=== PATIENT | female | born 1995 | race Caucasian/White ===

== ENCOUNTER 2017-03-25 21:48 | Emergency (ER) | payer SELFPAY ==
[~2017-03-25] VITALS: Ht 157.4 cm; Wt 59.0 kg
[~2017-03-25 21:48] MED LIST: AUGMENTIN 500 M1 TAB PO; DONNATAL1 TAB PO; MACROBID100 M1 PO; PRENATAL1 TA1 PO; SPRINTEC 35 MCG1 TA1 PO; TYLENOL W/CODEI1 TA2 PO; ZOFRAN4 MG PO
[2017-03-25] MEDS ORDERED: PRENATAL1 TA3 PO (22:27)
== END 2017-03-26 00:07 | disposition home or self-care (01) ==
LOC: ED 21:48
DX: O9A.211 Injury, poisoning and certain other consequences of external causes complicating pregnancy, first trimester (principal); O99.331 Smoking (tobacco) complicating pregnancy, first trimester; S40.812A Abrasion of left upper arm, initial encounter; S40.811A Abrasion of right upper arm, initial encounter; S10.91XA Abrasion of unspecified part of neck, initial encounter; S20.312A Abrasion of left front wall of thorax, initial encounter; F17.200 Nicotine dependence, unspecified, uncomplicated; Z3A.01 Less than 8 weeks gestation of pregnancy; V86.59XA Driver of other special all-terrain or other off-road motor vehicle injured in nontraffic accident, initial encounter; Y93.89 Activity, other specified; Y92.413 State road as the place of occurrence of the external cause; Y99.8 Other external cause status

== ENCOUNTER 2017-12-28 15:29 | Inpatient (IN) | payer OTHER ==
[~2017-12-28] VITALS: Ht 157.4 cm; Wt 57.7 kg
[2017-12-28] VITALS (7 sets, daily range): BP systolic 88–110; BP diastolic 59–65
--- NOTE | ~2017-12-28 | CON ---
[place], [place] REPORT OF CONSULTATION NAME: LUDWIN LEPE UNIT #: [id number] ROOM: 402 DOCTOR: MATY LOPES,JANUARY BIRTHDATE: [birth year] DOS: 12/30/2017 HISTORY OF PRESENT ILLNESS: Ludwin is a pleasant 22-year-old female. Her symptoms began approximately 3 weeks ago. She had back pain, burning with urination, fevers or chills. She tried cranberry pills and possibly Pyridium without any improvement of her symptoms. Her admitting urinalysis had +3 leukocyte esterase, wbc's too numerous to count. Her admitting CT of her abdomen and pelvis did demonstrate pyelonephritis. She had a renal ultrasound, which did not demonstrate any hydronephrosis or obstruction. ID is consulted for pyelonephritis or admitting urine culture grew an ESBL E. coli that is very resistant to antibiotics only sensitive to carbapenem and nitrofurantoin. The patient is alert and oriented, states she is feeling somewhat better. She had a max temp yesterday up to 103.5. Her blood cultures are negative. The patient has not received any recent antibiotics for at least over the last 6 months. The only thing she has had is Tamiflu. PAST MEDICAL HISTORY: She has had one other severe urinary tract infection that was approximately 7 years ago when she was with her son. Otherwise, no other significant past medical history. FAMILY MEDICAL HISTORY: Both parents with diabetes. SOCIAL HISTORY: She has two natural children, lives with her boyfriend and their total of 5 children. No alcohol or illicit drug use, smokes half pack of cigarettes per day for several years since she was a teenager. She works at [employer]. REVIEW OF SYSTEMS: As above in history of present illness. Nausea and vomiting have improved. No diarrhea. No rash or itch. No cough or shortness of breath. No headache or dizziness. No chest pain or palpitations. Back pain is improving. Temps today are down. She was started on Merrem today. No peripheral edema or joint swelling or pain. Further review of systems unremarkable. LABORATORY DATA: WBCs were originally 19.1 down to 11.8, platelets 229, BUN 3 and creatinine 0.6. Cultures as reviewed above. CURRENT MEDICATIONS: Vitamin B complex, Merrem that was just started this morning. She had been receiving Rocephin up until that point. Zofran, Restoril and Tylenol. VITAL SIGNS: Temperature 98.4, pulse 82, respirations 16 and BP 96/63. GENERAL: A 22-year-old female in no acute distress, nontoxic in appearance. HEAD, EYES, EARS, NOSE AND THROAT: Normocephalic, no thrush. NECK: Supple. LUNGS: Clear to auscultation bilaterally. Respirations even and unlabored. HEART: Regular rhythm. No murmur appreciated. ABDOMEN: Soft, nontender, nondistended. Mild right CVA tenderness. EXTREMITIES: No edema, deformity or cyanosis. SKIN: Warm, dry and free of rashes. [place], [place] REPORT OF CONSULTATION NAME: LUDWIN LEPE UNIT #: [id number] ROOM: [facility] DOCTOR: MATY LOPESJANUARY BIRTHDATE: [birth year] ASSESSMENT: Pyelonephritis with extended spectrum beta-lactamase Escherichia coli. PLAN: I did discuss with the patient at this point what she is probably going to need is a midline to be placed to go home on ertapenem 1 gram IV daily for a total of 14 days of treatment. Nitrofurantoin is not a good alternative as it is not indicated for pyelonephritis, only simple urinary infections. Case discussed with Dr. Phillip Baer. NOLA RUTLEDGE CNP PHILLIP BAER MD CM:CONSTR:REPORT OF CONSULTATION 1823 12/31/17 0901 interface
--- NOTE | ~2017-12-28 | CON ---
[place], [place] REPORT OF CONSULTATION NAME: LUDWIN LEPE UNIT #: [id number] ROOM: 402 DOCTOR: BUFFY ROMERO,PHILLIP Henriquez BIRTHDATE: [birth year] DOS: 12/30/2017 ADDENDUM After reviewing labs, cultures, radiographs, and chart, I agree with the above plans as described above. We will follow the patient up clinically and adjust accordingly. PHILLIP BAER MD CM:CONSTR:REPORT OF CONSULTATION 2116 12/31/17 0904 interface
[~2017-12-28 15:29] MED LIST changes: +PRENATAL1 TA3 PO
[2017-12-28 15:51] LABS: BILIRUBIN NEGATIVE (NEGATIVE); BLOOD 1+ (NEGATIVE); CLARITY CLOUDY (CLEAR); COLOR YELLOW (YELLOW); GLUCOSE NEGATIVE (NEGATIVE); KETONE NEGATIVE (NEGATIVE); LEUKO ESTERASE 3+ (NEGATIVE); NITRITE NEGATIVE (NEGATIVE); SPECIFIC GRAVITY <= 1.005 (1.005-1.030); UROBILINOGEN 0.2 E.U./dl (0.2-1.0)
[2017-12-28 15:54] LABS: HEMATOCRIT 38.8 % (37.0-47.0); HEMOGLOBIN 12.9 g/dl (12.0-16.0); MEAN CELL VOLUME 89.2 fl (81.0-99.0); MEAN CORPUSCULAR HGB 29.7 pg (27.0-31.0); MEAN CORPUSCULAR HGB CONC 33.2 g/dl (33.0-37.0); MEAN PLATELET VOLUME 10.1 fl (9.6-12.3); PLATELET COUNT AUTOMATED 265 10*3/uL (130-400); RED BLOOD COUNT 4.35 10*6/uL (4.10-5.10); RED CELL DISTRI WIDTH 12.8 % (0-14.5); WHITE BLOOD COUNT 19.1 10*3/uL (4.8-10.8)
[2017-12-28 16:04] LABS: BACTERIA 1+; WBC TNTC wbc/hpf (0-5)
[2017-12-28 16:09] LABS: ALBUMIN 3.3 gm/dl (3.1-4.5); ALKALINE PHOSPHATASE 95 U/L (45-117); BUN 8 mg/dl (7-24); CHLORIDE 100 mmol/L (98-107); CREATININE 0.98 mg/dL (0.55-1.02); POTASSIUM 3.5 mmol/L (3.5-5.1); SGOT/AST 20 IU/L (3-35); SGPT/ALT 17 U/L (12-78); SODIUM 134 mmol/L (136-145); TOTAL PROTEIN 8.3 gm/dL (6.4-8.2)
[2017-12-28 16:13] LABS: LIPASE 76 U/L (73-393)
[2017-12-28 16:14] LABS: TOTAL CELLS COUNTED 100 #CELLS
[2017-12-28 16:19] LABS: PLATELET SUFFICIENCY NORMAL (NORMAL)
[2017-12-28 16:20] LABS: POLYCHROMASIA SLIGHT
[2017-12-29 02:55] LABS: BASO % 0.3 % (0.0-1.0); EOS # 0.1 10*3/uL (0.0-0.4); EOS % 0.4 % (1.0-4.0); HEMATOCRIT 33.5 % (37.0-47.0); HEMOGLOBIN 11.1 g/dl (12.0-16.0); LYMPH # 3.1 10*3/uL (1.3-4.4); LYMPH % 21.6 % (27.0-41.0); MEAN CORPUSCULAR HGB 30.2 pg (27.0-31.0); MEAN CORPUSCULAR HGB CONC 33.1 g/dl (33.0-37.0); MEAN PLATELET VOLUME 9.5 fl (9.6-12.3); MONO # 1.3 10*3/uL (0.1-1.0); MONO % 9.1 % (3.0-9.0); NEUT # 9.6 10*3/uL (2.3-7.9); PLATELET COUNT AUTOMATED 213 10*3/uL (130-400); RED BLOOD COUNT 3.68 10*6/uL (4.10-5.10); WHITE BLOOD COUNT 14.2 10*3/uL (4.8-10.8)
[2017-12-29 03:10] LABS: ALBUMIN 2.6 gm/dl (3.1-4.5); ALKALINE PHOSPHATASE 72 U/L (45-117); BUN 7 mg/dl (7-24); CHLORIDE 107 mmol/L (98-107); CHOLESTEROL 97 mg/dL (<200); CREATININE 0.81 mg/dL (0.55-1.02); PHOSPHOROUS 3.7 mg/dL (2.5-4.9); POTASSIUM 3.6 mmol/L (3.5-5.1); SGOT/AST 8 IU/L (3-35); SGPT/ALT 12 U/L (12-78); SODIUM 143 mmol/L (136-145); TOTAL PROTEIN 6.3 gm/dL (6.4-8.2); TRIGLYCERIDES 94 mg/dl (<150); VLDL CHOLESTEROL 19 mg/dL (6-40)
[2017-12-29 03:12] LABS: HDL CHOLESTEROL 28 mg/dl (40-60); LDL CHOLESTEROL 50 mg/dL (9-159)
[2017-12-29 03:16] LABS: THYROID STIM HORMONE (HS) 0.992 uIU/ml (0.358-4.75)
[2017-12-29 07:08] LABS: VITAMIN D, 25-HYDROXY 44.8 ng/mL (30-100)
[2017-12-29 08:00] VITALS: BP 100/55
[2017-12-29 12:00] VITALS: BP 101/63
[2017-12-29 16:00] VITALS: BP 98/60
[2017-12-29 20:00] VITALS: BP 90/38
[2017-12-30] VITALS: BP 90/56
[2017-12-30 06:21] LABS: BASO % 0.3 % (0.0-1.0); EOS # 0.2 10*3/uL (0.0-0.4); EOS % 1.4 % (1.0-4.0); HEMATOCRIT 30.9 % (37.0-47.0); HEMOGLOBIN 10.3 g/dl (12.0-16.0); LYMPH # 2.9 10*3/uL (1.3-4.4); LYMPH % 24.7 % (27.0-41.0); MEAN CELL VOLUME 90.1 fl (81.0-99.0); MEAN CORPUSCULAR HGB CONC 33.3 g/dl (33.0-37.0); MEAN PLATELET VOLUME 10.1 fl (9.6-12.3); MONO # 1.1 10*3/uL (0.1-1.0); MONO % 9.4 % (3.0-9.0); NEUT # 7.5 10*3/uL (2.3-7.9); NEUT % 63.7 % (47.0-73.0); PLATELET COUNT AUTOMATED 229 10*3/uL (130-400); RED BLOOD COUNT 3.43 10*6/uL (4.10-5.10); RED CELL DISTRI WIDTH 13.2 % (0-14.5); WHITE BLOOD COUNT 11.8 10*3/uL (4.8-10.8)
[2017-12-30 06:46] LABS: BUN 3 mg/dl (7-24); CHLORIDE 113 mmol/L (98-107); PHOSPHOROUS 2.7 mg/dL (2.5-4.9); POTASSIUM 3.1 mmol/L (3.5-5.1); SODIUM 145 mmol/L (136-145)
[2017-12-30 08:00] VITALS: BP 104/60
[2017-12-30 12:00] VITALS: BP 94/57
[2017-12-30 16:00] VITALS: BP 96/63
[2017-12-30 20:00] VITALS: BP 104/65
[2017-12-31] VITALS: BP 95/53
[2017-12-31 07:04] LABS: HEMATOCRIT 33.3 % (37.0-47.0); MEAN CELL VOLUME 90.2 fl (81.0-99.0); MEAN CORPUSCULAR HGB 29.8 pg (27.0-31.0); MEAN PLATELET VOLUME 9.9 fl (9.6-12.3); PLATELET COUNT AUTOMATED 284 10*3/uL (130-400); RED BLOOD COUNT 3.69 10*6/uL (4.10-5.10); RED CELL DISTRI WIDTH 13.2 % (0-14.5); WHITE BLOOD COUNT 10.4 10*3/uL (4.8-10.8)
[2017-12-31 07:34] LABS: BUN 6 mg/dl (7-24); CHLORIDE 110 mmol/L (98-107); CREATININE 0.59 mg/dL (0.55-1.02); SODIUM 143 mmol/L (136-145)
[2017-12-31 07:39] LABS: BASOPHILS 3 % (0-1); PLATELET SUFFICIENCY NORMAL (NORMAL); POTASSIUM 4.1 mmol/L (3.5-5.1); TOTAL CELLS COUNTED 100 #CELLS
[2017-12-31 08:00] VITALS: BP 111/58
[2017-12-31 12:00] VITALS: BP 118/62; BP 136/77
[2017-12-31] MEDS ORDERED: INVANZ1 GM/50 ML IV (14:03)
[2017-12-31] MEDS ORDERED: FOLGARD TABLET1 EACH PO (15:46)
[2017-12-31 16:00] VITALS: BP 102/64
== END 2017-12-31 17:06 | disposition home health service (06) | DRG 872 ==
LOC: ED 15:29 → EDHOLD 19:04 → 4E 19:04
PROVIDERS: Internal Medicine; Internal Medicine Nephrology; Nurse Practitioner Family
PROC: 05HY33Z Insertion of Infusion Device into Upper Vein, Percutaneous Approach (ICD-10-PCS; principal; 2017-12-31)
DX: A41.9 Sepsis, unspecified organism (principal); E87.2 Acidosis; I95.9 Hypotension, unspecified; E87.1 Hypo-osmolality and hyponatremia; E44.1 Mild protein-calorie malnutrition; N10 Acute pyelonephritis; R65.20 Severe sepsis without septic shock; E53.8 Deficiency of other specified B group vitamins; Z16.12 Extended spectrum beta lactamase (ESBL) resistance; B96.20 Unspecified Escherichia coli [E. coli] as the cause of diseases classified elsewhere; Z83.3 Family history of diabetes mellitus; Z88.8 Allergy status to other drugs, medicaments and biological substances; Z72.0 Tobacco use; Z71.6 Tobacco abuse counseling; Z68.23 Body mass index [BMI] 23.0-23.9, adult

== ENCOUNTER 2020-01-27 16:35 | Emergency (ER) | payer BC ==
[~2020-01-27] VITALS: Ht 157.4 cm; Wt 59.0 kg
[~2020-01-27 16:35] MED LIST changes: +FOLGARD TABLET1 EACH PO; +INVANZ1 GM/50 ML IV
[2020-01-27 17:21] LABS: BASO % 0.2 % (0.0-1.0); EOS # 0.2 10*3/uL (0.0-0.4); EOS % 1.3 % (1.0-4.0); HEMATOCRIT 41.6 % (37.0-47.0); LYMPH # 3.8 10*3/uL (1.3-4.4); LYMPH % 31.2 % (27.0-41.0); MEAN CELL VOLUME 95.6 fl (81.0-99.0); MEAN CORPUSCULAR HGB CONC 32.5 g/dl (33.0-37.0); MEAN PLATELET VOLUME 9.3 fl (9.6-12.3); MONO # 0.9 10*3/uL (0.1-1.0); MONO % 7.3 % (3.0-9.0); NEUT # 7.3 10*3/uL (2.3-7.9); NEUT % 59.7 % (47.0-73.0); PLATELET COUNT AUTOMATED 297 10*3/uL (130-400); RED BLOOD COUNT 4.35 10*6/uL (4.10-5.10); WHITE BLOOD COUNT 12.3 10*3/uL (4.8-10.8)
[2020-01-27 17:34] LABS: BILIRUBIN NEGATIVE (NEGATIVE); BLOOD 3+ (NEGATIVE); CLARITY CLEAR (CLEAR); COLOR STRAW (YELLOW); GLUCOSE NEGATIVE (NEGATIVE); KETONE NEGATIVE (NEGATIVE); LEUKO ESTERASE 1+ (NEGATIVE); NITRITE NEGATIVE (NEGATIVE); SPECIFIC GRAVITY 1.005 (1.005-1.030); UROBILINOGEN 0.2 E.U./dl (0.2-1.0)
[2020-01-27 17:36] LABS: BACTERIA TRACE
[2020-01-27 17:40] LABS: ALKALINE PHOSPHATASE 75 U/L (45-117); BUN 9 mg/dl (7-24); CHLORIDE 108 mmol/L (98-107); CREATININE 0.62 mg/dL (0.55-1.02); POTASSIUM 3.9 mmol/L (3.5-5.1); SGOT/AST 12 IU/L (3-35); SGPT/ALT 17 U/L (12-78); SODIUM 138 mmol/L (136-145); TOTAL PROTEIN 7.5 gm/dL (6.4-8.2)
[2020-01-27] MEDS ORDERED: CEPHALEXIN500 M1 PO (18:26)
== END 2020-01-27 18:44 | disposition home or self-care (01) ==
LOC: ED 16:35
PROVIDERS: Nurse Practitioner Family
DX: O20.0 Threatened abortion (principal); O23.41 Unspecified infection of urinary tract in pregnancy, first trimester; O99.331 Smoking (tobacco) complicating pregnancy, first trimester; Z79.899 Other long term (current) drug therapy; Z3A.01 Less than 8 weeks gestation of pregnancy

== ENCOUNTER → 2020-01-28 | Outpatient (CLI) | payer BC ==
[~2020-01-28] MED LIST changes: +CEPHALEXIN500 M1 PO
== END | disposition home or self-care (01) ==
LOC: US 13:30
DX: O46.91 Antepartum hemorrhage, unspecified, first trimester (principal); Z3A.01 Less than 8 weeks gestation of pregnancy

== ENCOUNTER → 2020-02-06 | Outpatient (CLI) | payer BC | END | disposition home or self-care (01) | LOC: US 10:00 | DX: O20.9 Hemorrhage in early pregnancy, unspecified (principal); Z3A.01 Less than 8 weeks gestation of pregnancy ==

== ENCOUNTER → 2020-02-16 | Outpatient (CLI) | payer BC | END | disposition home or self-care (01) | LOC: US 11:30 | DX: O02.1 Missed abortion (principal) ==

== ENCOUNTER → 2021-11-24 | Outpatient (CLI) | payer BC | END | disposition home or self-care (01) | LOC: US 15:00 | PROVIDERS: ATTEND Nurse Practitioner Women's Health | DX: Z34.91 Encounter for supervision of normal pregnancy, unspecified, first trimester (principal); Z3A.08 8 weeks gestation of pregnancy ==

== ENCOUNTER 2022-06-04 18:14 | Emergency (ER) | payer BC ==
[~2022-06-04] VITALS: Ht 160 cm; Wt 68.0 kg
== END 2022-06-04 22:05 | disposition home or self-care (01) ==
LOC: ED 18:14
DX: S93.402A Sprain of unspecified ligament of left ankle, initial encounter (principal); Z87.891 Personal history of nicotine dependence; W18.39XA Other fall on same level, initial encounter; Y93.89 Activity, other specified; Y92.89 Other specified places as the place of occurrence of the external cause; Y99.8 Other external cause status